=== PATIENT | male | born 1960 | race Caucasian/White ===

== ENCOUNTER 2020-10-27 06:50 | Day surgery (SDC) | payer OTHER ==
[~2020-10-27 06:50] MED LIST: ATORVASTATIN CA20 MG PO; LOTREL 10-40 M1 EACH PO; ZETIA10 MG PO
== END 2020-10-27 16:55 | disposition home or self-care (01) ==
LOC: CIR.AMB 06:50
PROVIDERS: ATTEND Orthopaedic Surgery
DX: S52.572A Other intraarticular fracture of lower end of left radius, initial encounter for closed fracture (principal); M24.59 Contracture, other specified joint; Z20.822 Contact with and (suspected) exposure to COVID-19
CPT/HCPCS: 25609; 20902; 25118; 25280; C1776

== ENCOUNTER 2020-10-31 17:35 | Inpatient (IN) | payer OTHER ==
[~2020-10-31] VITALS: Ht 175.3 cm; Wt 90.7 kg
--- NOTE | 2020-10-31 17:58 | NUR ---
SE RECIBE PTE ALERTA Y ORIENTADO X3,REFIERE MITCHELL SIDO OPERADO POR EL DR.COLLAZO MIXON POR COMPLICACION DE MIHAELA CIRUGIA EN EL BRAZO BRENDEN PTE REFIERE TENER SECRECIONES.
[2020-11-05] MEDS ORDERED: BACTRIM DS TAB1 EACH PO (11:30)
[2020-11-05] MEDS ORDERED: ULTRAM50 MG PO (11:32)
== END 2020-11-05 12:40 | disposition home or self-care (01) | DRG 496 ==
LOC: ER 17:35 → SEC-K 18:52 → MEDI 18:52
PROVIDERS: ADMIT Orthopaedic Surgery; ATTEND Orthopaedic Surgery
PROC: 0PHJ04Z Insertion of Internal Fixation Device into Left Radius, Open Approach (ICD-10-PCS; 2020-11-02)
PROC: 0HBEXZX Excision of Left Lower Arm Skin, External Approach, Diagnostic (ICD-10-PCS; 2020-11-02)
PROC: 0PPJ04Z Removal of Internal Fixation Device from Left Radius, Open Approach (ICD-10-PCS; principal; 2020-11-02 07:00)
DX: T84.613A Infection and inflammatory reaction due to internal fixation device of left radius, initial encounter (principal); T81.49XA Infection following a procedure, other surgical site, initial encounter; S52.572S Other intraarticular fracture of lower end of left radius, sequela; I10 Essential (primary) hypertension; E78.5 Hyperlipidemia, unspecified; Z20.822 Contact with and (suspected) exposure to COVID-19

== ENCOUNTER 2021-01-24 10:28 | Outpatient (CLI) | payer OTHER ==
[~2021-01-24 10:28] MED LIST changes: +BACTRIM DS TAB1 EACH PO; +ULTRAM50 MG PO
== END 2021-01-24 10:34 | disposition home or self-care (01) ==
LOC: RAD 10:28
PROVIDERS: ATTEND Orthopaedic Surgery
DX: M25.531 Pain in right wrist (principal); M25.532 Pain in left wrist

== ENCOUNTER 2022-06-01 14:11 | Emergency (ER) | payer OTHER ==
[~2022-06-01] VITALS: Ht 177.8 cm; Wt 99.8 kg
== END 2022-06-01 21:10 | disposition home or self-care (01) ==
LOC: ER 14:11
DX: S42.352A Displaced comminuted fracture of shaft of humerus, left arm, initial encounter for closed fracture (principal); W19.XXXA Unspecified fall, initial encounter; Y93.9 Activity, unspecified; Y92.9 Unspecified place or not applicable; I10 Essential (primary) hypertension

== ENCOUNTER 2022-06-05 13:12 | Outpatient (CLI) | payer OTHER | END 2022-06-05 13:13 | disposition home or self-care (01) | LOC: NUCLEAR 13:12 | PROVIDERS: ATTEND Orthopaedic Surgery | DX: I82.622 Acute embolism and thrombosis of deep veins of left upper extremity (principal) ==

== ENCOUNTER → 2022-06-05 | Emergency (ER) | payer OTHER ==
[~2022-06-05] VITALS: Ht 177.8 cm; Wt 100.7 kg
== END | disposition left against medical advice (07) ==
LOC: ER 06:11
DX: Z53.21 Procedure and treatment not carried out due to patient leaving prior to being seen by health care provider (principal)

== ENCOUNTER → 2022-06-06 07:38 | Outpatient (CLI) | payer OTHER ==
[~2022-06-06] VITALS: Ht 177.8 cm; Wt 99.8 kg
== END | disposition home or self-care (01) ==
LOC: LAB 07:38
PROVIDERS: ATTEND Orthopaedic Surgery
DX: I49.9 Cardiac arrhythmia, unspecified (principal); I10 Essential (primary) hypertension; Z76.89 Persons encountering health services in other specified circumstances; D64.89 Other specified anemias; E88.89 Other specified metabolic disorders; D68.8 Other specified coagulation defects; N39.0 Urinary tract infection, site not specified; A49.02 Methicillin resistant Staphylococcus aureus infection, unspecified site; E11.9 Type 2 diabetes mellitus without complications